=== PATIENT | female | born 1940 | race Two or more races ===

== ENCOUNTER 2017-03-25 21:18 | Emergency (ER) | payer OTHER ==
[~2017-03-25] VITALS: Ht 162.6 cm; Wt 79.4 kg
[2017-03-25] MEDS ORDERED: Norco 5mg/325mg tab ONE (21:21)
--- NOTE | 2017-03-25 21:22 | Emergency Room Report ---
History of Present Illness General Chief Complaint: Lower Extremity Injury Source: Patient Present Illness HPI Is a 76-year-old female with a history hypertension. She presents with chief complaint of left ankle pain. She a lot of bed 2 days ago and twisted her left ankle. Since then his been hurting. Now is swollen and ecchymotic. Pain is 9/10. Worse with bearing weight. She has use a walker. No other injury. Did not pass out. Allergies: Coded Allergies: No Known Allergies (Unverified , 03/25/17) Patient History Past Medical History: see triage record, old chart reviewed, HTN Past Surgical History: other Pertinent Family History: none Social History: Denies: smoking Now: No Immunizations: other Reviewed Nursing Documentation: PMH: Agreed, PSxH: Agreed Nursing Documentation-PMH Hx Cardiac Problems: No Hx Hypertension: Yes Hx Pacemaker: No Hx Asthma: No Hx COPD: No Hx Diabetes: No Hx Cerebrovascular Accident: No Hx Seizures: No Review of Systems Eye: Denies: eye pain, blurred vision ENT: Denies: ear pain, nose congestion, throat swelling Respiratory: Denies: cough, shortness of breath Cardiovascular: Denies: chest pain, palpitations Gastrointestinal: Denies: abdominal pain, diarrhea, nausea, vomiting Musculoskeletal: Reports: joint pain, joint swelling, Denies: back pain Skin: Denies: rash Neurological: Denies: headache, numbness Endocrine: Denies: increased thirst, increased urine Hematologic/Lymphatic: Denies: easy bruising All Other Systems: negative except mentioned in HPI Physical Exam Vital Signs Date Time Temp Pulse Resp B/P (MAP) Pulse Ox O2 Delivery O2 Flow Rate FiO2 03/25/17 21:15 98.1 78 16 144/64 98 Room Air vitals normal Sp02 EP Interpretation: reviewed, normal General Appearance: well appearing, no apparent distress, alert Head: normocephalic, atraumatic Eyes: bilateral eye PERRL, bilateral eye EOMI ENT: hearing grossly normal, normal pharynx Neck: full range of motion, supple, no meningismus Respiratory: chest non-tender, lungs clear, normal breath sounds Cardiovascular #1: regular rate, rhythm, no murmur Gastrointestinal: normal bowel sounds, non tender, no mass, no organomegaly, no bruit, non-distended Musculoskeletal: back normal, normal range of motion, tender - Left ankle, laterally with ecchymosis and tenderness. Dorsalis pedis pulses 2+. Sensation normal. Psychiatric: mood/affect normal Skin: warm/dry Procedures Splinting Splinting : Consent: Verbal Location: Left ankle Pre-Made Type: aircast Pre-Proc Neuro Vasc Exam: normal Post-Proc Neuro Vasc Exam: normal Patient Tolerated: Well Complications: None Medical Decision Making Diagnostic Impression: Primary Impression: Left ankle sprain Qualified Codes: S93.402A - Sprain of unspecified ligament of left ankle, initial encounter Additional Impression: Avulsion fracture of lateral malleolus of left fibula Qualified Codes: S82.62XA - Displaced fracture of lateral malleolus of left fibula, initial encounter for closed fracture ER Course She presents with an ankle sprain. May have a small avulsion fracture. No instability. We'll discharge home. Other X-Ray Diagnostic Results Other X-Ray Diagnostic Results : X-Ray ordered: Left ankle # of Views/Limited Vs Complete: 3 View Indication: Pain EP Interpretation: Yes Interpretation: no dislocation, no soft tissue swelling, other - Questionable avulsion fracture of the distal fibula Impression: Other - Soft tissue swelling Interpreting ER Provider: Electronically signed by Jose Luis Allen MD Last Vital Signs Date Time Temp Pulse Resp B/P (MAP) Pulse Ox O2 Delivery O2 Flow Rate FiO2 03/25/17 21:15 98.1 78 16 144/64 98 Room Air Status: improved Disposition: HOME, SELF-CARE Condition: Stable Scripts Hydrocodone Bit/Acetaminophen 5-325* (NORCO 5-325*) 1 Each Tablet 1 TAB ORAL Q6H Y for For Pain, #20 TAB 0 Refills Prov: JOSE LUIS ALLEN M.D. 03/25/17 Patient Instructions: Ankle Sprain Additional Instructions: Followup with your DrMariya in 2-3 days. Elevate leg. Ice pack area. Return if worse. JOSE LUIS ALLEN M.D. Mar 25, 2017 21:22
[2017-03-25] MEDS ORDERED: Norco 5mg/325mg tab ORAL ONE (21:30)
[2017-03-25] MEDS ORDERED: NORCO 5-325 TA1 EACH ORAL (21:50)
[2017-03-25] MEDS ORDERED: Morphine Sulfate 4mg/ml Inj IM ONE (22:15)
[2017-03-25 22:27] VITALS: BP 144/64
--- NOTE | 2017-03-27 09:28 | Diagnostic Imaging Report ---
Indication: TRAUMA Technique: 3 views of the left ankle Comparison: none Findings: Visible on the mortise view is a nondisplaced fracture of the distal lateral fibula. There is overlying soft tissue swelling. No other acute fractures. No dislocations. Small plantar spur incidentally noted Impression: Positive for distal fibular fracture This agrees with the preliminary interpretation provided by the emergency room physician, but is a discrepancy from the [facility] one report. Discrepant findings phoned to Dr. Herman in the emergency room at the time of interpretation
== END 2017-03-25 22:27 | disposition home or self-care (01) ==
LOC: EDBD 21:18 → EMR 21:28
DX: S93.402A Sprain of unspecified ligament of left ankle, initial encounter (principal); S82.492A Other fracture of shaft of left fibula, initial encounter for closed fracture; X50.1XXA Overexertion from prolonged static or awkward postures, initial encounter; Y92.9 Unspecified place or not applicable; I10 Essential (primary) hypertension
CPT/HCPCS: 29515; 73610; 96372; 99283; J2270

== ENCOUNTER 2017-03-27 01:52 | Emergency (ER) | payer OTHER ==
[~2017-03-27] VITALS: Ht 154.9 cm; Wt 68.0 kg
[~2017-03-27 01:52] MED LIST: NORCO 5-325 TA1 EACH ORAL
[2017-03-27 02:00] VITALS: BP 145/89
[2017-03-27] MEDS ORDERED: Norco 5mg/325mg tab ORAL ONE (02:30)
[2017-03-27 03:05] VITALS: BP 148/86
[2017-03-27] MEDS ORDERED: Tylenol #3 tab (300mg/30mg) ORAL ONE (03:45)
[2017-03-27] MEDS ORDERED: ACETAMINOPHEN-1 EAC1 ORAL (03:58)
[2017-03-27 05:00] VITALS: BP 140/86
[2017-03-27 05:07] VITALS: BP 140/86
--- NOTE | 2017-03-27 05:12 | Emergency Room Report ---
History of Present Illness General Chief Complaint: Pain Source: Patient, EMS Present Illness HPI [id number] BIBEMS for left foot sprain, still with pain Was seen here last night for same Xray showed no fx, dislocation Was given Rx for Johnson Patient didnt fill it, wants T#3 instead Ambulating in ED with Walker Not following non weight-bearing instructions Allergies: Coded Allergies: No Known Allergies (Unverified , 03/25/17) Patient History Past Medical History: see triage record, old chart reviewed Past Surgical History: none Pertinent Family History: none Social History: Denies: smoking, alcohol use, drug use Last Menstrual Period: NA Now: No Immunizations: UTD Reviewed Nursing Documentation: PMH: Agreed, PSxH: Agreed Nursing Documentation-PMH Hx Cardiac Problems: No Hx Hypertension: Yes Hx Pacemaker: No Hx Asthma: No Hx COPD: No Hx Diabetes: No Hx Cerebrovascular Accident: No Hx Seizures: No Review of Systems All Other Systems: negative except mentioned in HPI Physical Exam Vital Signs Date Time Temp Pulse Resp B/P (MAP) Pulse Ox O2 Delivery O2 Flow Rate FiO2 03/27/17 01:50 99.1 102 18 150/99 98 Room Air Sp02 EP Interpretation: reviewed, normal General Appearance: normal inspection, well appearing, no apparent distress, alert, GCS 15, non-toxic Head: normocephalic, atraumatic Eyes: bilateral eye PERRL, bilateral eye EOMI ENT: normal ENT inspection, hearing grossly normal, normal voice Neck: normal inspection, full range of motion, supple, no bony tend Respiratory: normal inspection, lungs clear, normal breath sounds, no respiratory distress, no retraction, no wheezing Gastrointestinal: normal inspection, normal bowel sounds, non tender, soft, no guarding, no hernia Genitourinary: no CVA tenderness Musculoskeletal: normal inspection, back normal, normal range of motion, Bettie' s Sign negative, swelling, other - Left ankle with swelling. No obvious deformity Neurologic: normal inspection, alert, oriented x3, responsive, arcade attendant III-XII nml as tested, motor strength/tone normal, speech normal Psychiatric: normal inspection, judgement/insight normal, mood/affect normal Skin: normal inspection, normal color, no rash Medical Decision Making Diagnostic Impression: Primary Impression: Left ankle sprain Qualified Codes: S93.402D - Sprain of unspecified ligament of left ankle, subsequent encounter ER Course left ankle sprain Seen last night xray negative Patient ambulating without pain, difficulty T#3 Rx provided PMD followup DC home Last Vital Signs Date Time Temp Pulse Resp B/P (MAP) Pulse Ox O2 Delivery O2 Flow Rate FiO2 03/27/17 05:00 98.6 87 18 140/86 99 Room Air Status: improved Disposition: HOME, SELF-CARE Condition: Improved Scripts Acetaminophen With Codeine (T#3) (TYLENOL #3 TAB*) Y Tab 1 TAB ORAL Q8H Y for For Pain, #20 TAB Prov: RIMMA ARDON M.D. 03/27/17 Referrals: [facility] (PCP) Patient Instructions: Ankle Sprain, [id number] Additional Instructions: - Keep left ankle elevated at night, do NOT walk on it, apply ice for pain/ swelling - Follow up with your doctor in 2-3 days RIMMA ARDON M.D. Mar 27, 2017 05:12
== END 2017-03-27 05:07 | disposition home or self-care (01) ==
LOC: EDBD 01:52 → EMR 02:30
DX: S93.402D Sprain of unspecified ligament of left ankle, subsequent encounter (principal); X58.XXXD Exposure to other specified factors, subsequent encounter; I10 Essential (primary) hypertension
CPT/HCPCS: 99284